=== PATIENT | male | born 1945 | race Asian ===

== ENCOUNTER 2018-04-08 16:11 | Inpatient (IN) | payer MEDICARE, OTHER ==
[~2018-04-08] VITALS: Ht 175.3 cm; Wt 86.3 kg
[2018-04-08 19:48] LABS: Basophils # (auto) 0 uL; Basophils % (auto) 0.6 % (0.0-2.0); Eosinophils # (auto) 0.7 uL; Hematocrit 42.4 % (41.0-53.0); Hemoglobin 14.6 g/dL (13.5-17.5); Lymphocytes # (auto) 1.3 uL; Lymphocytes % (auto) 16.4 % (10.0-50.0); Mean Corpuscular Hemoglobin 33.1 pg (28.0-32.0); Mean Corpuscular Hgb Conc. 34.4 g/dL (32.0-36.0); Mean Corpuscular Volume 96.3 fL (80.0-100.0); Monocytes # (auto) 0.6 uL; Monocytes % (auto) 7.3 % (0.0-12.0); Neutrophils # (auto) 5.5 uL; Neutrophils % (auto) 67.7 % (37.0-80.0); Nucleated Red Blood Cells % 0.1 %; Platelet Count (auto) 191 10^3/uL (140-450); Red Blood Cells 4.41 10^6/uL (4.5-5.90); Red Cell Distribution Width 12.9 % (11.8-14.3); White Blood Cell 8.1 10^3/uL (4.4-10.8)
[2018-04-08 20:09] LABS: Alanine Aminotransferase 27 U/L (16-61); Albumin 3.5 g/dL (3.4-5.0); Alkaline Phosphatase 76 U/L (45-117); Anion Gap 8 (5-15); Aspartate Aminotransferase 16 U/L (15-37); BUN/Creatinine Ratio 19.8; Bilirubin, Total 0.3 mg/dL (0.2-1.0); Blood Urea Nitrogen 22 mg/dL (7-18); Calcium 8.1 mg/dL (8.5-10.1); Carbon Dioxide 24 mmol/L (21-32); Chloride 106 mmol/L (98-107); GFR African American 83 mL/min; GFR Non-African American 69 mL/min; Glucose 101 mg/dL (74-106); Magnesium 2.6 mg/dL (1.6-2.6); Potassium 3.9 mmol/L (3.5-5.1); Sodium 138 mmol/L (136-145); Total Protein 6.6 g/dL (6.4-8.2)
[2018-04-08 20:43] LABS: Partial Thromboplastin Time 26.9 sec (23.78-33.04); Prothrombin Time 10.7 sec (9.27-12.13)
[2018-04-08 21:00] LABS: Urine Bacteria NONE SEEN /hpf (None Seen); Urine Blood Negative /uL (Negative); Urine Mucus FEW (None Seen); Urine Specific Gravity 1.025 (1.001-1.035); Urine WBC 6 /hpf (0 - 3)
[2018-04-08] MEDS ORDERED: TEMAZEPAM 15 MG CAP PO PRN (22:00)
[2018-04-08] MEDS ORDERED: ONDANSETRON HCL 4 MG/2 ML VIAL IV PRN (22:00)
[2018-04-08] MEDS ORDERED: HYDROcodone-ACET 5/325MG TAB PO PRN (22:00)
[2018-04-08] MEDS ORDERED: DOCUSATE SOD 100 MG CAP PO PRN (22:00)
[2018-04-08 22:30] VITALS: BP 165/85
[2018-04-08] MEDS ORDERED: cloNIDine HCL 0.1 MG TAB PO PRN (22:30)
[2018-04-08] MEDS ORDERED: amLODIPine BESYLATE 5 MG TAB PO ONE (23:15)
[2018-04-08] MEDS ORDERED: cefTRIAXone 1GM/10ml IVPUSH 10 ML IV ONE (23:15)
[2018-04-08] MEDS: FAMOTIDINE 20 MG TAB PO SCH (23:18)
[2018-04-09 05:00] VITALS: BP 148/80
[2018-04-09 07:08] LABS: Basophils # (auto) 0.1 uL; Basophils % (auto) 0.8 % (0.0-2.0); Eosinophils # (auto) 0.7 uL; Eosinophils % (auto) 9.6 % (0.0-7.0); Lymphocytes # (auto) 1.1 uL; Lymphocytes % (auto) 14.5 % (10.0-50.0); Mean Corpuscular Hemoglobin 33.5 pg (28.0-32.0); Mean Corpuscular Hgb Conc. 34.8 g/dL (32.0-36.0); Mean Corpuscular Volume 96.4 fL (80.0-100.0); Monocytes # (auto) 0.5 uL; Monocytes % (auto) 6.5 % (0.0-12.0); Neutrophils % (auto) 68.6 % (37.0-80.0); Nucleated Red Blood Cells % 0.1 %; Platelet Count (auto) 188 10^3/uL (140-450); Red Blood Cells 4.47 10^6/uL (4.5-5.90); Red Cell Distribution Width 12.5 % (11.8-14.3); White Blood Cell 7.3 10^3/uL (4.4-10.8)
[2018-04-09 07:26] LABS: Potassium 4.1 mmol/L (3.5-5.1)
[2018-04-09 07:30] LABS: Albumin 3.4 g/dL (3.4-5.0); BUN/Creatinine Ratio 23.1; Calcium 8.3 mg/dL (8.5-10.1)
[2018-04-09 07:33] LABS: Bilirubin, Total 0.3 mg/dL (0.2-1.0); Total Protein 6.4 g/dL (6.4-8.2)
[2018-04-09 08:00] VITALS: BP 150/82
[2018-04-09 09:00] VITALS: BP 150/82
[2018-04-09] MEDS ORDERED: ENOXAPARIN SOD 40 MG/0.4 ML SYRINGE SC SCH (10:00)
[2018-04-09] MEDS: FAMOTIDINE 20 MG TAB PO SCH ×2 (10:16→21:22)
[2018-04-09] MEDS: ASPirin 81 mg TAB PO SCH (10:19)
[2018-04-09] MEDS: ACETAMINOPHEN 325 MG TAB PO PRN ×2 (10:20→21:31)
[2018-04-09] MEDS: amLODIPine BESYLATE 5 MG TAB PO SCH (10:20)
[2018-04-09 13:00] VITALS: BP 144/75
[2018-04-09 13:45] LABS: Cholesterol 142 mg/dL (< 200); HDL Cholesterol 33 mg/dL (40-59); LDL Cholesterol 104 mg/dL (< 100); Triglycerides 112 mg/dL (< 150)
[2018-04-09 17:00] VITALS: BP 139/81
[2018-04-09 20:00] VITALS: BP 141/74
[2018-04-09] MEDS ORDERED: cefTRIAXone 1GM/10ml IVPUSH 10 ML IV SCH (21:00)
[2018-04-10 05:00] VITALS: BP 149/77
[2018-04-10 09:00] VITALS: BP 168/97
[2018-04-10] MEDS: FAMOTIDINE 20 MG TAB PO SCH (09:33)
[2018-04-10] MEDS: amLODIPine BESYLATE 5 MG TAB PO SCH (09:34)
[2018-04-10] MEDS: ACETAMINOPHEN 325 MG TAB PO PRN (09:34)
[2018-04-10] MEDS: ASPirin 81 mg TAB PO SCH (09:35)
[2018-04-10] MEDS ORDERED: METOPROLOL TARTRATE 25 MG TAB PO ONE (11:45)
[2018-04-10 12:29] VITALS: BP 138/91
[2018-04-10 13:00] VITALS: BP 138/91
[2018-04-10] MEDS ORDERED: METOPROLOL TARTRATE 25 MG TAB PO SCH (22:00)
== END 2018-04-10 13:00 | disposition home or self-care (01) | DRG 69 ==
LOC: ER 16:16 → OVERFLOW 16:17 → EAST 22:30
PROVIDERS: ADMIT Nurse Practitioner; ATTEND Nurse Practitioner
DX: G45.9 Transient cerebral ischemic attack, unspecified (principal); N39.0 Urinary tract infection, site not specified; F17.200 Nicotine dependence, unspecified, uncomplicated; H11.31 Conjunctival hemorrhage, right eye; I10 Essential (primary) hypertension; I67.2 Cerebral atherosclerosis; R51 Headache; M31.6 Other giant cell arteritis; Z82.49 Family history of ischemic heart disease and other diseases of the circulatory system; Z82.5 Family history of asthma and other chronic lower respiratory diseases; Z79.82 Long term (current) use of aspirin; Z79.899 Other long term (current) drug therapy
CPT/HCPCS: 36415; 70450; 71046; 80053; 80061; 81001; 83735; 84484; 85025; 85610; 85652; 85730; 93005; 93306; 93886; J0696